=== PATIENT | female | born 1950 | race Caucasian/White ===

== ENCOUNTER 2016-11-03 10:10 | Emergency (ER) | payer MEDICARE, BC ==
[2016-11-03 10:15] VITALS: BP 136/79
--- NOTE | 2016-11-03 10:49 | UC ---
Skin Complaint HPI - History of Current Complaint Hx Obtained From: Patient ?: No Onset/Duration: Sudden Onset - awoke with red itchy aly on top of R shoulder this am. never saw tick or bug on her shoulder, was not there last pm Onset Severity: Mild Current Severity: Mild Aggravating: Nothing Alleviating: Nothing Associated Signs & Symptoms: Positive: Negative <Rey Trammell - Last Filed: 11/03/16 10:43> <Irlanda Whatley - Last Filed: 11/03/16 10:58> - History of Current Complaint Chief Complaint: UCSkin Time Seen by Provider: 11/03/16 10:34 Stated Complaint: TICK BITE - Allergy/Home Medications Allergies/Adverse Reactions: Allergies Allergy/AdvReac Type Severity Reaction Status Date / Time No Known Allergies Allergy Verified 01/22/15 12:17 Review of Systems Constitutional: Negative Skin: Other - see note Respiratory: Negative Cardiovascular: Negative Musculoskeletal: Negative Neurological: Negative Psychological: Negative All Other Systems Reviewed And Are Negative: Yes <Rey Trammell - Last Filed: 11/03/16 10:43> PMH/Surg Hx/FS Hx/Imm Hx Previously Healthy: Yes - Surgical History Surgical History: None - Family History Known Family History: Positive: None - Social History Occupation: Retired Lives: With Family Alcohol Use: Occasionally Substance Use Type: None Smoking Status (MU): Former Smoker Type: Cigarettes Have You Smoked in the Last Year: No Household Exposure Type: Cigarettes <Rey Trammell - Last Filed: 11/03/16 10:43> Physical Exam Triage Information Reviewed: Yes Appearance: Well-Appearing, No Pain Distress, Well-Nourished Vital Signs: Initial Vital Signs Temp 98 F 11/03/16 10:13 Pulse 74 11/03/16 10:13 Resp 16 11/03/16 10:13 BP 136/79 11/03/16 10:13 Pulse Ox 100 11/03/16 10:13 Vital Signs Reviewed: Yes Respiratory Exam: Normal Cardiovascular Exam: Normal Neurological Exam: Normal Psychological Exam: Normal Skin: Positive: Other - quarter sized erythemic, slightly raised pruritic lesion top of R shoulder. no evidence infection <Rey Trammell - Last Filed: 11/03/16 10:43> Vital Signs: Initial Vital Signs Temp 98 F 11/03/16 10:13 Pulse 74 11/03/16 10:13 Resp 16 11/03/16 10:13 BP 136/79 11/03/16 10:13 Pulse Ox 100 11/03/16 10:13 <Irlanda Whatley - Last Filed: 11/03/16 10:58> Course/Dx - Differential Diagnoses - Skin Complaint Differential Diagnoses: Cellulitis, Tick Born Illness - Diagnoses Provider Diagnoses: insect bite <Rey Trammell - Last Filed: 11/03/16 10:43> Discharge <Rey Trammell - Last Filed: 11/03/16 10:43> <Irlanda Whatley - Last Filed: 11/03/16 10:58> - Discharge Plan Condition: Stable Disposition: HOME Patient Education Materials: Insect Bite or Sting (ED) Referrals: Hector Sim MD [Primary Care Provider] - If Needed (for signs of infection) Additional Instructions: keep area clean and dry and report signs infection Attestation Statement User Type: Provider - I was available for consult. This patient was seen by the GIANNA. The patient was not presented to, seen by, or examined by me. -Aldo <Irlanda Whatley - Last Filed: 11/03/16 10:58>
== END 2016-11-03 11:14 | disposition home or self-care (01) ==
LOC: UCEAST 10:10
DX: S40.261A Insect bite (nonvenomous) of right shoulder, initial encounter (principal); W57.XXXA Bitten or stung by nonvenomous insect and other nonvenomous arthropods, initial encounter; Y93.9 Activity, unspecified; Y92.9 Unspecified place or not applicable; Z87.891 Personal history of nicotine dependence
CPT/HCPCS: 99211; G0463

== ENCOUNTER 2017-07-14 09:22 | Emergency (ER) | payer MEDICARE, BC ==
[2017-07-14 09:44] VITALS: BP 141/80
[2017-07-14] MEDS ORDERED: Doxycycline (NF) 100 MG TAB PO ONE (10:05)
[2017-07-14] MEDS ORDERED: DOXYcycline CAP(*) 100 MG PO ONE (10:09)
--- NOTE | 2017-07-14 12:52 | UC ---
Vicky Calvert Thomas, scribed for Angelica Mendoza DO on 07/14/17 at [id number] . Skin Complaint HPI - HPI Summary HPI Summary: The patient is a 67 year old female presenting to urgent care after she found an engorged tick on her left inside thigh this morning. She removed the tick prior to arrival and brought it in a Ziploc bag. She is unsure how long the tick was attached. She denies any fever, sweats, chills, headache, rash, arthralgia, and myalgia. The patient owns cats. - History of Current Complaint Chief Complaint: UCSkin Time Seen by Provider: 07/14/17 09:24 Stated Complaint: TICK BITE Hx Obtained From: Patient Onset/Duration: Still Present Timing: Constant Onset Severity: Mild Current Severity: None Pain Intensity: 0 Pain Scale Used: 0-10 Numeric Location: Other - Left inner thigh Aggravating Factor(s): Nothing Alleviating Factor(s): Other - Patient removed tick herself Associated Signs & Symptoms: Positive: Negative Related History: Other: - Engorged tick - Allergy/Home Medications Allergies/Adverse Reactions: Allergies Allergy/AdvReac Type Severity Reaction Status Date / Time No Known Allergies Allergy Verified 07/14/17 09:44 Review of Systems Constitutional: Negative - fever Skin: Other - Engorged tick attached to left inner thigh Is Patient Immunocompromised?: No All Other Systems Reviewed And Are Negative: Yes PMH/Surg Hx/FS Hx/Imm Hx Previously Healthy: Yes - NEGATIVE: HTN, DM - Surgical History Surgical History: None Surgery Procedure, Year, and Place: denies - Family History Known Family History: Positive: None - Social History Alcohol Use: Occasionally Substance Use Type: None Smoking Status (MU): Former Smoker Type: Cigarettes Have You Smoked in the Last Year: No When Did the Patient Quit Smoking/Using Tobacco: 1974 Household Exposure Type: Cigarettes Physical Exam - Summary Physical Exam Summary: Appearance: Well-Appearing, No Pain Distress, Well-Nourished Eyes: conjunctiva clear, no discharge ENT: Hearing grossly normal, no muffled/hoarse voice. Neck: Normal, Supple Respiratory/Lung Sounds: Lungs clear, Normal breath sounds, No respiratory distress, No accessory muscle use Cardiovascular: RRR, No murmur Musculoskeletal: Normal Neurological: Alert, muscle tone normal Psychiatric:Normal, age appropriate behavior Skin: Normal, Warm, Dry, Normal color. There is a bite site on her left inner thigh. Triage Information Reviewed: Yes Vital Signs: Initial Vital Signs Temp 98.6 F 07/14/17 09:39 Pulse 71 07/14/17 09:39 Resp 16 07/14/17 09:39 BP 141/80 07/14/17 09:39 Pulse Ox 100 07/14/17 09:39 Vital Signs Reviewed: Yes Course/Dx - Course Course Of Treatment: The patient is a 67 year old female presenting after she found an engorged tick to her left inner thigh. Patient was given a dose of doxycycline. She was urged to watch for Lyme disease symptoms and go to her primary care provider if needed. The patient is agreeable with this plan. Medications reviewed. Allergies reviewed. - Diagnoses Provider Diagnoses: Tick bite Discharge - Discharge Plan Condition: Stable Disposition: HOME Patient Education Materials: Tick Bite (ED) Referrals: Hector Sim MD [Primary Care Provider] - The documentation as recorded by the Vicky verduzco Thomas accurately reflects the service I personally performed and the decisions made by , Angelica Mendoza DO.
== END 2017-07-14 10:15 | disposition home or self-care (01) ==
LOC: UCEAST 09:22
DX: S70.362A Insect bite (nonvenomous), left thigh, initial encounter (principal); W57.XXXA Bitten or stung by nonvenomous insect and other nonvenomous arthropods, initial encounter; Y93.9 Activity, unspecified; Y92.9 Unspecified place or not applicable; Z87.891 Personal history of nicotine dependence
CPT/HCPCS: 99212; A9270-GY; G0463